=== PATIENT | female | born 1960 | race Caucasian/White ===

== ENCOUNTER 2016-05-28 09:51 | Emergency (ER) | payer OTHER ==
[~2016-05-28] VITALS: Wt 65.6 kg
[2016-05-28] MEDS ORDERED: SOD CHLORIDE 0.9% 1,000 ML IV STA (10:21)
[2016-05-28 11:35] LABS: CHLORIDE 103 mmol/L (97-110); POTASSIUM 4.3 mmol/L (3.5-5.1); SODIUM 145 mmol/L (135-144)
[2016-05-28 11:37] LABS: CREATININE 0.65 mg/dl (0.44-1.00)
[2016-05-28 11:38] LABS: ANION GAP 18 (8-16); BLOOD UREA NITROGEN 11 mg/dl (7-20); CALCIUM 9.4 mg/dl (8.4-10.2); CARBON DIOXIDE 28 mmol/L (21-31); GLUCOSE 84 mg/dl (70-220); MAGNESIUM 2.2 mg/dl (1.7-2.5)
--- NOTE | 2016-05-28 11:39 | RADRPT ---
PROCEDURE: XR Chest. CLINICAL INDICATION: chest pain TECHNIQUE: Single frontal view of the chest was obtained COMPARISON: None FINDINGS: The heart and mediastinum are within normal limits. The lungs are clear. There is no pleural effusion or pneumothorax. RPTAT: AA IMPRESSION: No acute disease. .Rickey Vargas MD, Date Time Electronically viewed and signed by .Rickey Vargas MD, on 05/28/2016 11:38 .S/
[2016-05-28 11:40] LABS: BASOPHILS % 0.5 % (0.0-2.0); EOSINOPHILS # 0.5 10^3/ul (0.0-0.5); EOSINOPHILS % 8.1 % (0.0-7.0); HEMATOCRIT 49.8 % (37.0-47.0); HEMOGLOBIN 17.1 g/dl (12.0-16.0); LYMPHOCYTES # 1.8 10^3/ul (0.8-2.9); LYMPHOCYTES % 31.4 % (15.0-51.0); MEAN CORPUSCULAR HEMOGLOBIN 30.6 pg (29.0-33.0); MEAN CORPUSCULAR HGB CONC 34.4 g/dl (32.0-37.0); MEAN CORPUSCULAR VOLUME 89.1 fl (82.0-101.0); MONOCYTE # 0.4 10^3/ul (0.3-0.9); MONOCYTES % 6.3 % (0.0-11.0); NEUTROPHIL # 3.1 10^3/ul (1.6-7.5); NEUTROPHILS % 53.7 % (39.0-77.0); PLATELET COUNT 215 10^3/UL (140-440); RED BLOOD COUNT 5.59 10^6/ul (4.20-5.40); RED CELL DISTRIBUTION WIDTH 12.4 % (11.5-14.5); UNCORRECTED WBC 5.8 10^3/ul (4.8-10.8); WHITE BLOOD COUNT 5.8 10^3/ul (4.8-10.8)
[2016-05-28 11:45] LABS: INR 0.91; PARTIAL THROMBOPLASTIN TIME 27.3 Sec (25.0-35.0); PROTIME 12.2 Sec (12.2-14.2)
[2016-05-28 11:46] LABS: CONDITION 1
[2016-05-28 12:01] LABS: TROPONIN-I < 0.012 ng/ml (0.00-0.12)
[2016-05-28 12:09] LABS: THYROID STIMULATING HORMONE 0.688 MIU/L (0.465-4.680)
[2016-05-28 13:10] VITALS: BP 125/68; PULSE 80; RESP 18
--- NOTE | 2016-05-28 13:38 | ERD ---
ER Documentation Chief Complaint Date/Time DATE: 05/28/16 TIME: 13:34 Chief Complaint palpitations for the past few mos, more frequent now with dizziness HPI Patient is a 55-year-old female with no medical problems who presents with palpitations. She has had palpitations off and on for the past 2 years. She says they were worsening over the past 2 days. She has had no treatment as of yet. She has no chest pain or shortness of breath. Her primary doctor is Dr. Nasir Bennett. ROS All systems reviewed and are negative except as per history of present illness. Medications Home Meds No Active Prescriptions or Reported Meds Allergies Allergies: Coded Allergies: No Known Allergy (Unverified , 05/28/16) PMhx/Soc Medical and Surgical Hx: pt denies Medical Hx, pt denies Surgical Hx Hx Alcohol Use: No Hx Substance Use: No Hx Tobacco Use: No Smoking Status: Never smoker FmHx Family History: diabetes Physical Exam Vitals Vital Signs Date Time Temp Pulse Resp B/P Pulse Ox O2 Delivery O2 Flow Rate FiO2 05/28/16 09:54 97.6 88 20 168/74 99 Physical Exam Const: No acute distress Head: Atraumatic Eyes: Normal Conjunctiva ENT: Normal External Ears, Nose and Mouth. Neck: Full range of motion..~ No meningismus. Resp: Clear to auscultation bilaterally Cardio: Regular rate and rhythm, no murmurs Abd: Soft, non tender, non distended. Normal bowel sounds Skin: No petechiae or rashes Back: No midline or flank tenderness Ext: No cyanosis, or edema Neur: Awake and alert Psych: Normal Mood and Affect Result Diagram: 05/28/16 1045 05/28/16 1045 Results 24 hrs Laboratory Tests Test 05/28/16 10:45 Activated Partial Thromboplast Time 27.3Sec Anion Gap 18 Basophils # 0.010^3/ul Basophils % 0.5% Blood Urea Nitrogen 11mg/dl Calcium Level 9.4mg/dl Carbon Dioxide Level 28mmol/L Chloride Level 103mmol/L Creatinine 0.65mg/dl Eosinophils # 0.510^3/ul Eosinophils % 8.1% Free Thyroxine 1.00ng/dl Glucose Level 84mg/dl Hematocrit 49.8% Hemoglobin 17.1g/dl INR International Normalized Ratio 0.91 Lymphocytes # 1.810^3/ul Lymphocytes % 31.4% Magnesium Level 2.2mg/dl Mean Corpuscular Hemoglobin 30.6pg Mean Corpuscular Hemoglobin Concent 34.4g/dl Mean Corpuscular Volume 89.1fl Mean Platelet Volume 9.0fl Monocytes # 0.410^3/ul Monocytes % 6.3% Neutrophils # 3.110^3/ul Neutrophils % 53.7% Nucleated Red Blood Cells # 0.010^3/ul Nucleated Red Blood Cells % 0.0/100WBC Platelet Count 61827^3/UL Potassium Level 4.3mmol/L Prothrombin Time 12.2Sec Prothrombin Time Ratio 1.0 Red Blood Count 5.5910^6/ul Red Cell Distribution Width 12.4% Sodium Level 145mmol/L Thyroid Stimulating Hormone (TSH) 0.688MIU/L Troponin I < 0.012ng/ml White Blood Count 5.810^3/ul Current Medications Medications (Trade) Dose Ordered Sig/Iván Route PRN Reason Start Time Stop Time Status Last Admin Dose Admin Sodium Chloride (NS) 1,000 ml @ 1,000 mls/hr Q1H STAT IV 05/28/16 10:21 05/28/16 11:20 DC 05/28/16 11:46 Procedures/MDM EKG read by me: Rate/Rhythm: Regular rate and rhythm at a normal rate Intervals: Normal Impression: No evidence of ischemia or arrhythmia Chest x-ray negative per radiology. Patient is a 55-year-old female with no medical problems who presents with palpitations. Her laboratory studies are normal including magnesium and thyroid test. Her EKG shows no signs of ischemia or arrhythmia. At this point I believe outpatient management is appropriate. The patient will need to follow -up with her primary doctor and may benefit from having a Holter monitor placed to evaluate for arrhythmias. At this point I do not believe she requires admission to the hospital. She could return for any worsening symptoms. I doubt acute coronary syndrome or acute arrhythmia such as ventricular fibrillation or ventricular tachycardia. Departure Diagnosis: Primary Impression: Palpitations Condition: Fair Patient Instructions: Palpitations Referrals: NASIR BENNETT Additional Instructions: Llame al doctor BETHANY y shanika reginald GLENN PARA DENTRO DE 1-2 THORNE.Dgale a la secretaria que nosotros le instruimos hacer esta glenn.Avise o llame si lebron condicin se empeora antes de la glenn. Regresa aqui si peor o no mejor. RUDDY PATEL MD May 28, 2016 13:38
== END 2016-05-28 13:10 | disposition home or self-care (01) ==
LOC: E/R 09:51
DX: R00.2 Palpitations (principal); R40.2142 Coma scale, eyes open, spontaneous, at arrival to emergency department; R40.2252 Coma scale, best verbal response, oriented, at arrival to emergency department; R40.2362 Coma scale, best motor response, obeys commands, at arrival to emergency department; R07.9 Chest pain, unspecified
CPT/HCPCS: 36415; 71010; 80048; 83735; 84439; 84443; 84484; 85025; 85610; 85730; 93005; J7030; Z7502

== ENCOUNTER 2018-09-09 06:40 | Day surgery (SDC) | payer OTHER ==
[2018-09-08 15:08] VITALS: Ht 157.5 cm; Wt 65.5 kg
[~2018-09-09] VITALS: Ht 157.5 cm; Wt 65.5 kg
[2018-09-09] VITALS (10 sets, daily range): BP systolic 131–157; BP diastolic 70–80; PULSE 68–76; RESP 14–51
[2018-09-09] MEDS ORDERED: CLINDAMYCIN 600 MG/D5W (PMX) 50 ML IVPB ONE (07:00)
[2018-09-09] MEDS ORDERED: SOD CHLORIDE 0.9% 1,000 ML IV SCH (07:00)
--- NOTE | 2018-09-09 09:07 | PREAC ---
Date/Time of Note Date/Time of Note DATE: 09/09/18 TIME: 09:03 Anesthesia Eval and Record Evaluation Time Pre-Procedure Interview DATE: 09/09/18 TIME: 09:03 Age 57 Sex female NPO: 8 hrs Preoperative diagnosis CHEST MASS Planned procedure CHEST MASS EXCISION Past Medical History Past Medical History: None Surgery & Anesthesia Issues No known issue Meds Anticoagulation: No Beta Jacob within 24 hr: No Reason Beta Jacob not given: Pt. not on B-Jacob No Active Prescriptions or Reported Meds Current Medications Sodium Chloride 1,000 ml @ 75 mls/hr [id number] IV Last administered on 09/09/18at 08:27; Admin Dose 75 MLS/HR; Start 09/09/18 at 07:00 Meds reviewed: Yes Allergies Coded Allergies: Penicillins (Verified Allergy, Unknown, RASH, 09/09/18) Allergies Reviewed: Yes Labs/Studies Labs Reviewed: Reviewed by anesthesiologist Result Diagram: 09/09/18 0756 09/09/18 0756 Laboratory Tests 09/09/18 07:56 test: N/A Pre-procedure Exam Last vitals Vital Signs Date Temp Pulse Resp B/P (MAP) Pulse Ox O2 O2 Flow FiO2 Time Delivery Rate 09/09/18 97.6 71 18 143/79 99 Room Air 08:02 (100) Airway: Adequate mouth opening, Adequate thyromental dist Mallampati: Mallampati II Teeth: Normal Lung: Normal Heart: Normal ASA Physical Status ASA physical status: 1 Emergency: None Planned Anesthetic General/MAC: MAC Planned Pain Management Parenteral pain med Pre-operative Attestations Prior to commencing anesthesia and surgery, the patient was re-evaluated, there was verification of: *The patient's identity *The results of appropriate recent lab work and preoperative vital signs *The above evaluation not changing prior to induction *Anesthetic plan, risk benefits, alternative and complications discussed with patient/family; questions answered; patient/family understands, accepts and wishes to proceed. Dakota Mattson M.D. Sep 09, 2018 09:07
[2018-09-09] MEDS ORDERED: BUPIVACAINE 0.25% (MPF) 30 ML INJ INJ ONE (09:10)
[2018-09-09] MEDS ORDERED: LIDOCAINE 2% (MDV) 20 ML INJ INJ ONE (09:10)
[2018-09-09] MEDS ORDERED: MIDAZOLAM 1 MG/ML 2 ML INJ ONE (09:12)
[2018-09-09] MEDS ORDERED: KETOROLAC 30 MG INJ ONE (09:13)
[2018-09-09] MEDS ORDERED: FENTAnyl 50 MCG/ML VIAL ONE (09:13)
[2018-09-09] MEDS ORDERED: ONDANSETRON 4 MG INJ ONE (09:13)
[2018-09-09] MEDS ORDERED: LIDOCAINE 2% (MDV) 20 ML INJ ONE (09:21)
[2018-09-09] MEDS ORDERED: BUPIVACAINE 0.5% (SDV) 30 ML INJ ONE (09:21)
[2018-09-09] MEDS ORDERED: ALBUTEROL 0.083% (NEB) 2.5 MG/3 ML AMP HHN PRN (09:30)
[2018-09-09] MEDS ORDERED: OXYCODONE/ACETAMINOPHEN (5/325) TAB PO PRN ×2 (09:30)
[2018-09-09] MEDS ORDERED: IPRATROPIUM (NEB) 0.5 MG/2.5 ML AMP HHN PRN (09:30)
[2018-09-09] MEDS ORDERED: MIDAZOLAM 1 MG/ML 2 ML INJ IV PRN (09:30)
[2018-09-09] MEDS ORDERED: HYDROmorphONE 1 MG/5 ML IV SYRINGE IV PRN ×3 (09:30)
[2018-09-09] MEDS ORDERED: MEPERIDINE 25 MG INJ IV PRN (09:30)
[2018-09-09] MEDS ORDERED: LABETALOL HCL 20MG INJ IV PRN (09:30)
[2018-09-09] MEDS ORDERED: hydrALAzine 20 MG INJ IV PRN (09:30)
[2018-09-09] MEDS ORDERED: ONDANSETRON 4 MG INJ IV PRN (09:30)
[2018-09-09] MEDS ORDERED: EPHEDrine 25 MG/5 ML SYG IV PRN (09:30)
[2018-09-09] MEDS ORDERED: TRIMETHOBENZAMIDE 100 MG/ML VIAL IM PRN (09:30)
[2018-09-09] MEDS ORDERED: FENTAnyl 50 MCG/ML VIAL IV PRN ×3 (09:30)
[2018-09-09] MEDS ORDERED: DIPHENHYDRAMINE 50 MG INJ IV PRN (09:30)
--- NOTE | 2018-09-09 09:52 | OPR ---
Date/Time of Note Date/Time of Note DATE: 09/09/18 TIME: 09:44 Operative Report Procedure Date: Sep 09, 2018 Preoperative Diagnosis chest mass Postoperative Diagnosis same Operation/Procedure Performed 1. chest mass excision 4 cm mass 4 cm incision 2. localized adjacent tissue transfer 8 sq cm defect of the chest mass 3. therapeutic injection of subcutaneous local anesthesia Surgeon see signature line Weaving Machine Operator none Anesthesia Type: MAC Estimated Blood Loss: 0 - 10 ml's Transfusion none Specimen chest mass Grafts/Implants none Complications none Pt Condition Post Procedure: stable Indications Is a 57-year-old female with a chest mass was painful. She required surgical excision of the mass. Risks alternatives benefits and personally discussed the patient. Patient expressed understanding consents to the operation. Procedure Description Patient is taken to the OR and prepped and draped in usual sterile fashion. Surgical time was performed. IV antibiotics given patient. Therapeutic subcutaneous local anesthesia was injected at the incision site. Elliptical incision made with a 15 blade. Dissection with cautery skin onto the mass and the mass circumferentially excised. Good hemostasis status. Due to tissue defect localization to his transfer with use of skin flaps performed. Multilayer closed with interrupted 3-0 Vicryl and skin olinda. Dry dressings were applied. Andrez SEXTON Sep 09, 2018 09:52
[2018-09-09] MEDS ORDERED: HYDROCODONE/APAP (5/325) TAB PO ONE (10:00)
--- NOTE | 2018-09-09 10:30 | PAC ---
Date/Time of Note Date/Time of Note DATE: 09/09/18 TIME: 10:30 Post-Anesthesia Notes Post-Anesthesia Note Last documented vital signs Vital Signs Date Temp Pulse Resp B/P (MAP) Pulse Ox O2 O2 Flow FiO2 Time Delivery Rate 09/09/18 68 51 137/78 98 Room Air 10:08 (97) 09/09/18 98.0 09:53 09/09/18 2.0 09:48 Activity: WNL Respiratory function: WNL Cardiovascular function: WNL Mental status: Baseline Pain reasonably controlled: Yes Hydration appropriate: Yes Nausea/Vomiting absent: Yes Dakota Mattson M.D. Sep 09, 2018 10:30
--- NOTE | 2018-09-09 14:21 | RADRPT ---
Vent Rate: 75 bpm RR Interval: 800 msec MT Interval: 133 msec QRS Duration: 97 msec QT Interval: 408 msec QTC Interval: 456 msec P-R-T [place]: 35 - 22 - 43 degrees Sinus rhythm...normal P axis, V-rate 50- 99 Electronically Signed By: Donnie Andrea
== END 2018-09-09 10:54 | disposition home or self-care (01) ==
LOC: SDS 06:40
PROVIDERS: ATTEND Surgery
DX: L72.0 Epidermal cyst (principal)
CPT/HCPCS: 14000; 71045; 80053; 85025; 85610; 85730; 88307; 93005; J1885; J2250; J2405; J3010; Z7512; Z7610